=== PATIENT | female | born 1985 ===

== ENCOUNTER 2016-12-06 13:36 | Emergency (ER) | payer MEDICAID ==
[2016-12-06 13:36] VITALS: BMI 23.0
[2016-12-06 14:01] VITALS: BP 116/79; PULSE 96; RESP 16; TEMP 98.3; O2SAT 100
--- NOTE | 2016-12-06 14:24 | ED PDOC ---
HPI: Abdomen Time Seen by Provider: 12/06/16 14:18 Chief Complaint (Nursing): Abdominal Pain Chief Complaint (Provider): with abdominal pain History Per: Patient History/Exam Limitations: no limitations Severity: Moderate Location Of Pain/Discomfort: Suprapubic Associated Symptoms: Back Pain (lower abdominal pain radiates to lower back). denies: Fever, Chills, Nausea, Vomiting Additional Complaint(s): 31 year old female 10 weeks (A2) presents to the ED with complaints of lower abdominal pain that was intermittent for the past few days and worsened today. She describes the pain as cramping and states that it radiates to her lower back. She denies having fevers, chills, vaginal bleeding, nausea, and vomiting. OB: [facility] [place] Abnormal Vaginal Bleeding: No : 5 Para: 2 Miscarriage: 2 (elective terminations) Past Medical History Reviewed: Historical Data, Nursing Documentation, Vital Signs Vital Signs: Last Vital Signs Temp 98.3 F 12/06/16 13:58 Pulse 96 H 12/06/16 13:58 Resp 16 12/06/16 13:58 BP 116/79 12/06/16 13:58 Pulse Ox 100 12/06/16 17:32 - Medical History PMH: No Chronic Diseases Denies: Depression - Surgical History Surgical History: (2x) - Family History Family History: States: No Known Family Hx - Living Arrangements Living Arrangements: With Family - Social History Current smoker - smoking cessation education provided: No Alcohol: None Drugs: Denies - Home Medications Home Medications: Ambulatory Orders Medication Instructions Recorded Cephalexin [Keflex] 500 mg PO BID #10 cap 06/25/15 Famotidine [Pepcid] 20 mg PO DAILY #30 tab 06/25/15 - Allergies Allergies/Adverse Reactions: Allergies Allergy/AdvReac Type Severity Reaction Status Date / Time No Known Allergies Allergy Verified 06/25/15 14:46 Review of Systems ROS Statement: Except As Marked, All Systems Reviewed And Found Negative Constitutional: Negative for: Fever, Chills Gastrointestinal: Positive for: Abdominal Pain (lower abdominal cramping, pain radiates to her lower back). Negative for: Nausea, Vomiting Physical Exam - Reviewed Nursing Documentation Reviewed: Yes Vital Signs Reviewed: Yes - Physical Exam Appears: Positive for: Well, Non-toxic, No Acute Distress Head Exam: Positive for: ATRAUMATIC, NORMOCEPHALIC Skin: Positive for: Normal Color, Warm, Dry Cardiovascular/Chest: Positive for: Regular Rate, Rhythm Respiratory: Positive for: Normal Breath Sounds. Negative for: Respiratory Distress Gastrointestinal/Abdominal: Positive for: Normal Exam, Soft. Negative for: Tenderness Neurologic/Psych: Positive for: Alert, Oriented (3x) - Laboratory Results Result Diagrams: 12/06/16 14:35 12/06/16 14:35 Urine dip results: Positive for: Leukocyte Esterase (trace), Ketones (trace) - ECG O2 Sat by Pulse Oximetry: 100 (RA) Pulse Ox Interpretation: Normal - Other Rad OB US X-Ray: Read By Radiologist X-Ray Interpretation: see below Medical Decision Making Medical Decision Makin:18 Initial impression: 31 year old female 10 weeks with lower abdominal pain. Initial plan: * US OB transvaginal * beta HCG quantitative * CMP * udip * CBC * tylenol 650mg PO * reevaluation 17:26 US OB transvaginal read and reviewed by radiologist Findings: The uterus measures approximately 12.9 x 5.8 x 7.5 cm. Anteverted. Cervix length measures approximately 3.9 cm. There is a single intrauterine fetus present. 3 mm yolk sac. The gestational sac measures 4.4 cm and is compatible with a gestational age of 9 weeks 6 days. The crown-rump length measures 2.3 cm and is compatible with a gestational age of 9 weeks 0 days. There is heart motion which measured 152 BPM. The right ovary measures 2.6 x 1.4 x 1.8 cm. The left ovary measures 3.5 x 2.8 x 2.5 cm. Blood flow was demonstrated to both ovaries. Impression: Live single intrauterine with estimated gestational age 9 weeks 3 days. heart rate 152.4 bpm. Advise an anomaly screen at 16-18 weeks gestational age. 17:37: Patient is aware of all diagnostic testing results. All questions answered. Patient feels better after Tylenol dose and was instructed that she can continue Tylenol for pain. He was instructed to follow-up with women's clinic in 2-3 days and she is aware she can return to ED at any time if acutely worse. Scribe Attestation: Documented by Tarsha Kc, acting as a scribe for Hailey Quintero PA-C. Provider Scribe Attestation: All medical record entries made by the Scribe were at my direction and personally dictated by me. I have reviewed the chart and agree that the record accurately reflects my personal performance of the history, physical exam, medical decision making, and the department course for this patient. I have also personally directed, reviewed, and agree with the discharge instructions and disposition. Disposition - Clinical Impression Clinical Impression: Abdominal pain during - Patient ED Disposition Is Patient to be Admitted: No Counseled Patient/Family Regarding: Studies Performed, Diagnosis, Need For Followup - Disposition Referrals: [facility] [Outside] Disposition: Routine/Home Disposition Time: 17:32 Condition: STABLE Additional Instructions: Tylenol as needed for pain. Rest and drink plenty of fluids. Follow up with women's clinic in 2-3 days. Instructions: Abdominal Pain in (ED) Results - Lab Results Lab Results: 12/06/16 12/06/16 12/06/16 15:15 14:35 14:35 WBC 10.5 RBC 3.85 Hgb 12.0 Hct 35.3 MCV 91.7 MCH 31.1 H MCHC 34.0 RDW 12.8 Plt Count 247 MPV 7.6 Neut % (Auto) 84.4 H Lymph % (Auto) 10.3 L Gove % (Auto) 4.7 Eos % (Auto) 0.3 Baso % (Auto) 0.3 Neut # 8.9 H Lymph # 1.1 Gove # 0.5 Eos # 0.0 Baso # 0.0 Sodium 139 Potassium 3.6 Chloride 107 Carbon Dioxide 23 Anion Gap 13 BUN 9 Creatinine 0.6 L Est GFR ( Amer) > 60 Est GFR (Non-Af Amer) > 60 Random Glucose 91 Calcium 9.3 Total Bilirubin 0.3 AST 20 ALT 35 Alkaline Phosphatase 40 Total Protein 7.3 Albumin 4.1 Globulin 3.2 Albumin/Globulin Ratio 1.3 Beta HCG, Quant .00 Urine Color Yellow Urine Clarity Cloudy Urine pH 6.0 Ur Specific [place] 1.026 Urine Protein 30 Urine Glucose (UA) Neg Urine Ketones Trace Urine Blood Negative Urine Nitrate Negative Urine Bilirubin Negative Urine Urobilinogen 0.2-1.0 Ur Leukocyte Esterase Neg Urine RBC (Auto) 4 H Urine Microscopic WBC 4 Ur Squamous Epith Cells 22 H Urine Bacteria Rare
[2016-12-06 14:56] LABS: BASO % 0.3 % (0.0-2.0); EOS % 0.3 % (0.0-4.0); LYMPH # 1.1 K/uL (1.0-4.3); LYMPH % 10.3 % (20.0-40.0); MEAN CELL VOLUME 91.7 fl (81.0-99.0); MEAN CORPUSCULAR HEMOGLOBIN 31.1 pg (27.0-31.0); MEAN PLATELET VOLUME 7.6 fl (7.2-11.7); MONO # 0.5 K/uL (0.0-0.8); MONO % 4.7 % (0.0-10.0); NEUT # 8.9 K/uL (1.8-7.0); NEUT % 84.4 % (50.0-75.0); RBC 3.85 Mil/uL (3.80-5.20); RED CELL DISTRIBUTION WIDTH 12.8 % (11.5-14.5); WHITE BLOOD COUNT 10.5 K/uL (4.8-10.8)
[2016-12-06 15:15] LABS: ALB/GLOB RATIO 1.3 (1.0-2.1); ALBUMIN 4.1 g/dL (3.5-5.0); ALT/SGPT 35 U/L (9-52); AST/SGOT 20 U/L (14-36); BLOOD UREA NITROGEN 9 mg/dl (7-17); CALCIUM 9.3 mg/dL (8.4-10.2); GFR AFRICAN-AMERICAN > 60; GFR NON-AFRICAN AMERICAN > 60
[2016-12-06 16:06] LABS: SQUAMOUS EPITHIAL 22 /hpf (0-5); URINE BACTERIA RARE (<OCC); URINE BILIRUBIN NEGATIVE (NEGATIVE); URINE BLOOD NEGATIVE (NEGATIVE); URINE CLARITY CLOUDY (Clear); URINE COLOR YELLOW (YELLOW); URINE GLUCOSE (UA) NEG (Normal); URINE LEUKOCYTE ESTERASE NEG Leu/uL (Negative); URINE NITRATE NEGATIVE (NEGATIVE); URINE PROTEIN 30 mg/dL (NEGATIVE); URINE UROBILINOGEN 0.2-1.0 mg/dL (0.2-1.0)
--- NOTE | 2016-12-06 17:28 | US ---
Indication: 10 weeks with cramping pain Comparison: None available Technique: Transabdominal pelvic ultrasound Findings: The uterus measures approximately 12.9 x 5.8 x 7.5 cm. Anteverted. Cervix length measures approximately 3.9 cm. There is a single intrauterine fetus present. 3 mm yolk sac. The gestational sac measures 4.4 cm and is compatible with a gestational age of 9 weeks 6 days. The crown-rump length measures 2.3 cm and is compatible with a gestational age of 9 weeks 0 days. There is heart motion which measured 152 BPM. The right ovary measures 2.6 x 1.4 x 1.8 cm. The left ovary measures 3.5 x 2.8 x 2.5 cm. Blood flow was demonstrated to both ovaries. Impression: Live single intrauterine with estimated gestational age 9 weeks 3 days. heart rate 152.4 bpm. Advise an anomaly screen at 16-18 weeks gestational age
== END 2016-12-06 17:44 | disposition home or self-care (01) ==
LOC: H.ER 13:36
DX: O23.40 Unspecified infection of urinary tract in pregnancy, unspecified trimester (principal); Z3A.18 18 weeks gestation of pregnancy

== ENCOUNTER 2018-04-11 13:26 | Emergency (ER) | payer MEDICAID ==
[2018-04-11 13:26] VITALS: BMI 27.1
[2018-04-11 13:54] VITALS: RESP 16
[2018-04-11 15:40] LABS: BASO # 0.1 K/uL (0.0-0.2); BASO % 0.7 % (0.0-2.0); EOS # 0.1 K/uL (0.0-0.7); EOS % 1.4 % (0.0-4.0); HEMOGLOBIN 12.2 g/dL (12.0-16.0); LYMPH # 1.4 K/uL (1.0-4.3); LYMPH % 16.1 % (20.0-40.0); MEAN CELL VOLUME 90.6 fl (81.0-99.0); MEAN CORPUSCULAR HEMOGLOBIN 30.8 pg (27.0-31.0); MEAN CORPUSCULAR HGB CONC 33.9 g/dL (33.0-37.0); MEAN PLATELET VOLUME 7.5 fl (7.2-11.7); MONO # 0.5 K/uL (0.0-0.8); MONO % 6.2 % (0.0-10.0); NEUT # 6.6 K/uL (1.8-7.0); NEUT % 75.6 % (50.0-75.0); RBC 3.98 Mil/uL (3.80-5.20); RED CELL DISTRIBUTION WIDTH 13.2 % (11.5-14.5); WHITE BLOOD COUNT 8.7 K/uL (4.8-10.8)
[2018-04-11 15:51] LABS: INR 1.1
[2018-04-11 15:54] LABS: PARTIAL THROMBOPLASTIN TIME 33.6 Seconds (25.6-37.1)
[2018-04-11 15:58] LABS: ALB/GLOB RATIO 1.1 (1.0-2.1); ALBUMIN 3.5 g/dL (3.5-5.0); ALT/SGPT 26 U/L (9-52); AST/SGOT 16 U/L (14-36); BLOOD UREA NITROGEN 12 mg/dl (7-17); CALCIUM 8.8 mg/dL (8.4-10.2); GFR NON-AFRICAN AMERICAN > 60
[2018-04-11] MEDS ORDERED: Potassium Chloride 20 mEq ER Tab PO STA (16:35)
--- NOTE | 2018-04-11 16:37 | ED PDOC ---
HPI: Abdomen Time Seen by Provider: 04/11/18 15:09 Chief Complaint (Nursing): Female Genitourinary Chief Complaint (Provider): Abdominal Pain History Per: Patient History/Exam Limitations: no limitations Onset/Duration Of Symptoms: Days Current Symptoms Are (Timing): Better Quality Of Discomfort: Cramping Additional Complaint(s): 32 year old female presents to the ER for an evaluation of abdominal cramping which she states has become better now. Patient is G7, P2 and 6 weeks . She was seen at [facility] for vaginal bleeding and cramping. She was told the has no heartbeat and she went to a clinic at [place] for repeat blood work where she had bad cramping. When using the bathroom, she took out her tampon and found a large clot with the fetus attached. Patient denies any other complaints or abdominal cramping. Past Medical History Reviewed: Historical Data, Nursing Documentation, Vital Signs Vital Signs: Last Vital Signs Temp 98.4 F 04/11/18 13:49 Pulse 96 H 04/11/18 13:49 Resp 16 04/11/18 13:49 BP 104/70 04/11/18 13:49 Pulse Ox 98 04/11/18 13:49 - Medical History PMH: No Chronic Diseases Denies: Depression, Chronic Kidney Disease - Surgical History Surgical History: (2x) - Family History Family History: States: Unknown Family Hx - Social History Current smoker - smoking cessation education provided: No Alcohol: None Drugs: Denies - Home Medications Home Medications: Ambulatory Orders Medication Instructions Recorded Indomethacin [Indocin] 25 mg PO TID PRN #15 cap 07/15/17 Methocarbamol [Robaxin] 750 mg PO TID PRN #20 tab 07/15/17 Naproxen [Naprosyn] 500 mg PO BID PRN #15 tablet 04/11/18 - Allergies Allergies/Adverse Reactions: Allergies Allergy/AdvReac Type Severity Reaction Status Date / Time No Known Allergies Allergy Verified 07/15/17 10:03 Review of Systems ROS Statement: Except As Marked, All Systems Reviewed And Found Negative Constitutional: Negative for: Fever Gastrointestinal: Positive for: Abdominal Pain. Negative for: Nausea, Vomiting, Diarrhea Genitourinary Female: Negative for: Dysuria, Frequency, Incontinence, Hematuria Physical Exam - Reviewed Nursing Documentation Reviewed: Yes Vital Signs Reviewed: Yes - Physical Exam Appears: Positive for: Well, Non-toxic, No Acute Distress Head Exam: Positive for: ATRAUMATIC, NORMAL INSPECTION, NORMOCEPHALIC Skin: Positive for: Normal Color, Warm, Dry. Negative for: Rash Eye Exam: Positive for: EOMI, Normal appearance, PERRL ENT: Positive for: Normal ENT Inspection Neck: Positive for: Normal, Painless ROM, Supple. Negative for: Decreased ROM Cardiovascular/Chest: Positive for: Regular Rate, Rhythm. Negative for: Murmur Respiratory: Positive for: Normal Breath Sounds. Negative for: Decreased Breath Sounds, Wheezing, Respiratory Distress Gastrointestinal/Abdominal: Positive for: Normal Exam, Soft. Negative for: Tenderness, Guarding, Rebound Back: Positive for: Normal Inspection. Negative for: L CVA Tenderness, R CVA Tenderness Extremity: Positive for: Normal ROM. Negative for: Tenderness, Pedal Edema, Deformity Neurologic/Psych: Positive for: Alert, Oriented (x3). Negative for: Motor/Sensory Deficits - Laboratory Results Result Diagrams: 04/11/18 15:37 04/11/18 15:37 - ECG O2 Sat by Pulse Oximetry: 98 (RA) Pulse Ox Interpretation: Normal Medical Decision Making Medical Decision Making: Time: 151 Initial Impression: spontaneous Initial Plan: --BBK Type and Screen --BETA-HCG, Quantitative --CMP --CBC w/ Differential --PTT --Prothrombin Time --Urinalysis --OB Preg 1st Tri & OB Transvag [US] -- OB Transvaginal [US] --Reevaluation 17:[address] Ortiz, recommends pt follow-up in Clinic on 04/14 or 04/15 for reevaluation, dx missed . Scribe Attestation: Documented by Lucas Ye, acting as a scribe for Arlet Mujica MD Provider Scribe Attestation: All medical record entries made by the Scribe were at my direction and pe rsonally dictated by me. I have reviewed the chart and agree that the record accurately reflects my personal performance of the history, physical exam, medical decision making, and the department course for this patient. I have also personally directed, reviewed, and agree with the discharge instructions and disposition. Disposition - Clinical Impression Clinical Impression: Missed - Patient ED Disposition Is Patient to be Admitted: No - Disposition Disposition: Routine/Home Disposition Time: 17:35 Condition: STABLE Additional Instructions: FOLLOW-UP WITH [facility] ON 04/14 OR 04/15 FOR REEVALUATION. Prescriptions: Naproxen [Naprosyn] 500 mg PO BID PRN #15 tablet PRN Reason: Pain, Moderate (4-7) Instructions: Miscarriage Forms: [facility] (Czech)
--- NOTE | 2018-04-11 17:11 | US ---
Date of service: 04/11/2018 PROCEDURE: First trimester ultrasound HISTORY: Abd pain COMPARISON: None TECHNIQUE: Standard protocol for this study/examination. FINDINGS: LMP: 01/25/2018 Prior examinations from the current : None TECHNIQUE: Real-time 2D imaging, duplex and color Doppler. FINDINGS: No pole identified. Gestational age 6 weeks 1 day based on gestational sac measurement 1.79 cm Gestational age derived from LMP: 10 weeks 6 days CARLYN based on LMP: 11/01/2018. CARLYN based on biometry: 12/04/2018 Gestational concordance not apparent Yolk sac identified Cervix: No Cervical abnormalities: Negative examination for cervical dilatation or effacement. Closed cervix measuring 3.83 cm Subchorionic hemorrhage: None UTERUS: 4.6 x 7.4 x 9.6 cm. ADNEXA: Right: 1.8 x 2 x 3.1 cm. Normal Doppler arterial waveform documented. Left: 2.6 x 2.7 x 4.0 cm. Complex cyst 2.4 x 1.9 x 2.7 cm. Normal Doppler arterial waveform documented Fluid in the cul-de-sac: None. IMPRESSION: Gestational sac and yolk sac without pole. Complex, septated cyst left adnexa.
[2018-04-11 17:23] LABS: SQUAMOUS EPITHIAL 9 /hpf (0-5); URINE BACTERIA RARE (<OCC); URINE BILIRUBIN NEGATIVE (NEGATIVE); URINE BLOOD LARGE (NEGATIVE); URINE CALCIUM OXALATE CRYSTALS MOD /hpf (<OCC); URINE CLARITY CLOUDY (Clear); URINE COLOR YELLOW (YELLOW); URINE GLUCOSE (UA) NEG (Normal); URINE LEUKOCYTE ESTERASE TRACE Leu/uL (Negative); URINE PROTEIN 100 mg/dL (NEGATIVE); URINE UROBILINOGEN 0.2-1.0 mg/dL (0.2-1.0)
[2018-04-11 18:14] VITALS: BP 116/66; PULSE 68; TEMP 97.8; O2SAT 100
== END 2018-04-11 17:55 | disposition home or self-care (01) ==
LOC: H.ER 13:26
DX: O02.1 Missed abortion (principal)